=== PATIENT | male | born 1950 | race Caucasian/White ===

== ENCOUNTER 2017-12-14 12:33 | Day surgery (SDC) | payer MEDICARE, OTHER ==
[~2017-12-14] VITALS: Ht 172.7 cm; Wt 105.9 kg
[2017-12-14] MEDS ORDERED: COUMADIN 77.5 MG/TAB PO (12:53)
[2017-12-14] MEDS ORDERED: CELEXA 20MG20 MG/TAB PO (12:56)
[2017-12-14] MEDS ORDERED: IRON18 MG1 PO (12:56)
[2017-12-14] MEDS ORDERED: VITAMIN C500 MG PO (12:56)
[2017-12-14] MEDS ORDERED: SYNTHROID0.137 MG PO (12:56)
[2017-12-14] MEDS ORDERED: ASPIRIN 81M81 MG/TA2 PO (12:57)
[2017-12-14] MEDS ORDERED: MEGA MULTIVITAM1 TAB PO (12:57)
[2017-12-14] MEDS ORDERED: X FACTOR PO (12:58)
[2017-12-14 12:59] VITALS: BP 135/83; PULSE 79; TEMP 98.7
[2017-12-14 14:24] VITALS: TEMP 97.8
[2017-12-14 15:15] VITALS: BP 124/58; PULSE 78
[2017-12-14] MEDS ORDERED: NORCO 325 MG-51 TAB PO (15:25)
[2017-12-14] MEDS ORDERED: PYRIDIUM 100MG100 MG PO (15:26)
[2017-12-14] MEDS ORDERED: COLACE 100100 MG/CAP PO (15:26)
[2017-12-14 15:30] VITALS: BP 151/85; PULSE 77
[2017-12-14 15:50] VITALS: BP 142/74; PULSE 73
== END 2017-12-14 15:50 | disposition home or self-care (01) ==
LOC: SDCO 12:33
DX: N20.2 Calculus of kidney with calculus of ureter (principal); I25.10 Atherosclerotic heart disease of native coronary artery without angina pectoris; K51.90 Ulcerative colitis, unspecified, without complications; G47.33 Obstructive sleep apnea (adult) (pediatric); E03.9 Hypothyroidism, unspecified; N52.9 Male erectile dysfunction, unspecified; F17.210 Nicotine dependence, cigarettes, uncomplicated; Z83.3 Family history of diabetes mellitus; Z90.49 Acquired absence of other specified parts of digestive tract; Z95.1 Presence of aortocoronary bypass graft; Z79.82 Long term (current) use of aspirin; Z79.01 Long term (current) use of anticoagulants; Z79.899 Other long term (current) drug therapy; Z82.49 Family history of ischemic heart disease and other diseases of the circulatory system; Z85.038 Personal history of other malignant neoplasm of large intestine; Z92.21 Personal history of antineoplastic chemotherapy
CPT/HCPCS: C1769; C1894; C2617; J0690; J1100; J1885; J2270; J2405; J2704; J3010; J7120; Q9967

== ENCOUNTER 2017-12-21 14:01 | Day surgery (SDC) | payer MEDICARE, OTHER ==
[~2017-12-21] VITALS: Ht 172.7 cm; Wt 102.5 kg
[~2017-12-21 14:01] MED LIST: ASPIRIN 81M81 MG/TA2 PO; CELEXA 20MG20 MG/TAB PO; COLACE 100100 MG/CAP PO; COUMADIN 77.5 MG/TAB PO; IRON18 MG1 PO; MEGA MULTIVITAM1 TAB PO; NORCO 325 MG-51 TAB PO; PYRIDIUM 100MG100 MG PO; SYNTHROID0.137 MG PO; VITAMIN C500 MG PO; X FACTOR PO
[2017-12-21 15:27] VITALS: BP 114/80; PULSE 88; TEMP 98.4
[2017-12-21 18:50] VITALS: BP 121/77; PULSE 59; TEMP 98
[2017-12-21] MEDS ORDERED: NORCO 325 MG-51 TAB PO (18:56)
[2017-12-21] MEDS ORDERED: PYRIDIUM 100MG100 MG PO (18:56)
[2017-12-21] MEDS ORDERED: COLACE 100100 MG/CAP PO (18:57)
[2017-12-21 19:05] VITALS: BP 121/77; PULSE 59
[2017-12-21 19:20] VITALS: BP 130/79; PULSE 63
[2017-12-21 19:23] VITALS: TEMP 97.9
[2017-12-21 19:35] VITALS: BP 127/77; PULSE 62
== END 2017-12-21 20:10 | disposition home or self-care (01) ==
LOC: SDCO 14:01
DX: N20.1 Calculus of ureter (principal); I25.10 Atherosclerotic heart disease of native coronary artery without angina pectoris; E03.9 Hypothyroidism, unspecified; N52.9 Male erectile dysfunction, unspecified; F17.220 Nicotine dependence, chewing tobacco, uncomplicated; G47.33 Obstructive sleep apnea (adult) (pediatric); Z95.1 Presence of aortocoronary bypass graft; Z90.49 Acquired absence of other specified parts of digestive tract; Z79.82 Long term (current) use of aspirin; Z79.01 Long term (current) use of anticoagulants; Z85.038 Personal history of other malignant neoplasm of large intestine; Z86.718 Personal history of other venous thrombosis and embolism; Z87.19 Personal history of other diseases of the digestive system; Z83.3 Family history of diabetes mellitus; Z82.49 Family history of ischemic heart disease and other diseases of the circulatory system
CPT/HCPCS: C1769; C1894; C2617; J0690; J1100; J1885; J2405; J2704; J3010; J7120

== ENCOUNTER 2020-12-13 05:13 | Day surgery (SDC) | payer MEDICARE, OTHER ==
[~2020-12-13] VITALS: Ht 172.7 cm; Wt 111.6 kg
[2020-12-13 06:00] VITALS: BP 123/64; PULSE 66; TEMP 98.9
[2020-12-13] MEDS ORDERED: IMDUR 60MG60 MG/TAB PO (06:08)
[2020-12-13] MEDS ORDERED: SODIUM BICARBO650 MG PO (06:09)
[2020-12-13] MEDS ORDERED: SYNTHROID0.112 MG/T PO (06:10)
[2020-12-13] MEDS ORDERED: CELEXA 20MG20 MG/TAB PO (06:11)
[2020-12-13] MEDS ORDERED: ZETIA 10MG TAB10 MG PO (06:11)
[2020-12-13] MEDS ORDERED: THE MEDICINE S200 M2 PO (06:12)
[2020-12-13] MEDS ORDERED: CRESTOR5 MG PO (06:13)
[2020-12-13] MEDS ORDERED: NITROSTAT0.4 MG/TAB SL (06:14)
[2020-12-13] MEDS ORDERED: TOPROL XL 25MG25 MG PO (06:14)
[2020-12-13] MEDS ORDERED: COUMADIN 6MG6 MG/TAB PO (06:15)
--- NOTE | 2020-12-13 06:18 | NUR ---
TO RM 2 AT 0529- CALL LIGHT IN REACH AT BEDSIDE
[2020-12-13] MEDS ORDERED: PYRIDIUM 100MG100 MG PO (08:19)
[2020-12-13 08:45] VITALS: BP 134/65; PULSE 80; TEMP 98.2
--- NOTE | 2020-12-13 08:45 | NUR ---
TO RM 2 PER CART FROM PACU. ALERT ORIENTED X3, TALKING TO AND STAFF. C/O PAIN 09/21. DENIES NEED FOR PAIN MEDICATIONS AT THIS TIME.
[2020-12-13 09:00] VITALS: BP 140/71; PULSE 78
--- NOTE | 2020-12-13 09:00 | NUR ---
RECEIVED WATER AND TAKING SIPS. AMBULATED TO BATHROOM AND VOIDED. AMBULATED BACK TO BED AND TOLERATED WELL.
[2020-12-13 09:15] VITALS: BP 154/77; PULSE 69; TEMP 98.8
--- NOTE | 2020-12-13 09:30 | NUR ---
AMBULATED TO BATHROOM 2ND TIME. C/O INCREASED PAIN 11/21. RECEIVED PERCOCET 5/325MG 1 TAB
[2020-12-13 09:45] VITALS: BP 163/80; PULSE 73
--- NOTE | 2020-12-13 10:00 | NUR ---
ATE 100% AND TOLERATED WELL. RECEIVED DISCHARGE INSTRUCTIONS AND VERBALIZED UNDERSTANDING. ASSISTED PATIENT DRESSED TO BATHROOM 3RD TIME.
--- NOTE | 2020-12-13 10:10 | NUR ---
DISCHARGED PER WC BY NURSING STAFF TO PRIVATE CAR IN CARE OF - [facility].
--- NOTE | 2020-12-13 10:23 | NUR ---
RECEIVED MUFFIN AND 2ND CUP OF WATER
== END 2020-12-13 10:31 | disposition home or self-care (01) ==
LOC: SDCO 05:13
DX: N20.2 Calculus of kidney with calculus of ureter (principal); N28.89 Other specified disorders of kidney and ureter; N13.39 Other hydronephrosis; R31.0 Gross hematuria; I10 Essential (primary) hypertension; I25.10 Atherosclerotic heart disease of native coronary artery without angina pectoris; M19.90 Unspecified osteoarthritis, unspecified site; K51.90 Ulcerative colitis, unspecified, without complications; G47.30 Sleep apnea, unspecified; N52.9 Male erectile dysfunction, unspecified; E03.9 Hypothyroidism, unspecified; F17.210 Nicotine dependence, cigarettes, uncomplicated; Z90.49 Acquired absence of other specified parts of digestive tract; Z95.1 Presence of aortocoronary bypass graft; Z20.822 Contact with and (suspected) exposure to COVID-19; Z79.82 Long term (current) use of aspirin; Z79.899 Other long term (current) drug therapy; Z85.038 Personal history of other malignant neoplasm of large intestine; Z86.718 Personal history of other venous thrombosis and embolism; Z79.890 Hormone replacement therapy; Z79.01 Long term (current) use of anticoagulants
CPT/HCPCS: C1769; C1894; J0690; J1100; J2405; J2704; J3010; J7120; Q9967